=== PATIENT | female | born 1985 | race Hispanic/Latino ===

== ENCOUNTER 2017-06-04 12:57 | Observation (INO) | payer MEDICAID ==
[2017-06-04] MEDS ORDERED: PHARMACY COMMUNICATION MISC SCH (13:15)
[2017-06-04 14:19] LABS: COLLECTION PERIOD,URINE 24 HR; TOTAL VOLUME 24HRS,URINE 1400 mL
[2017-06-04 14:20] LABS: TPROTEIN TIMED,URINE 16 mg/dL; TPROTEIN U,24HR CALC 224 mg/24HR (0-165)
[2017-06-04 14:23] LABS: CREATININE,SERUM FOR CRCL 0.4 mg/dL (0.6-1.3)
[2017-06-04] MEDS ORDERED: CELESTONE SOLUSPAN 6 MG/ML 5ML VIAL IM ONE (14:45)
== END 2017-06-04 15:11 | disposition home or self-care (01) ==
LOC: EDBD → LAB 12:57 → LDH 12:58
PROVIDERS: ADMIT Obstetrics & Gynecology; ATTEND Obstetrics & Gynecology
DX: I10 Essential (primary) hypertension (principal)
CPT/HCPCS: 82575; 84156; 96372; G0378 ×2; J0702 ×2

== ENCOUNTER 2017-06-24 10:00 | Inpatient (IN) | payer MEDICAID ==
[2017-06-24 11:43] LABS: HEMATOCRIT 34.7 % (36-48); MEAN CORPUSCULAR HEMOGLOBIN 27.1 pg (27.0-33.0); MEAN CORPUSCULAR HGB CONC 32.4 g/dL (32.0-36.0); MEAN CORPUSCULAR VOLUME 83.6 fL (79-99); PLATELET COUNT (AUTO) 308 K/uL (130-400); RED BLOOD CELL COUNT(AUTO) 4.15 MIL/uL (4.00-5.50); RED CELL DISTRIBUTION WIDTH 17.3 % (11.0-15.5); WHITE BLOOD COUNT (AUTO) 7.8 K/uL (4.8-10.8)
[2017-06-25] MEDS ORDERED: CALDOLOR 800MG+NS 250ML 250 ML IV PRN (05:45)
[2017-06-25] MEDS ORDERED: CEFAZOLIN SODIUM 1 GM VIAL IVP PRN (05:45)
[2017-06-25] MEDS ORDERED: LACTATED RINGERS 1000ML 1,000 ML IV SCH (05:45)
[2017-06-25] MEDS ORDERED: DURAMORPH PF1 MG/ML 10ML AMP IV ONE (07:12)
[2017-06-25] MEDS ORDERED: OXYTOCIN 10 UNIT/1ML 10ML VIAL ONE (07:21)
[2017-06-25] MEDS ORDERED: EPHEDRINE-NS PF 50MG/5ML SYRINGE IV ONE (07:22)
[2017-06-25 07:30] LABS: HEPATITIS Bs ANTIGEN SCREEN P Negative (Negative)
[2017-06-25] MEDS ORDERED: OXYTOCIN-LR 20 UNITS/1000 ML 1,000 ML IV PRN (08:06)
[2017-06-25] MEDS ORDERED: ACETAMINOPHEN-CODEINE 300/30MG TAB PO PRN (08:15)
[2017-06-25] MEDS ORDERED: DEXTROSE 5 %-0.45 % NACL 1,000 ML IV PRN (08:15)
[2017-06-25] MEDS ORDERED: SODIUM CHLORIDE 0.9% 10 ML VIAL IVP PRN (08:15)
[2017-06-25] MEDS: IBUPROFEN 800 MG TAB PO SCH ×2 (08:15→16:15)
[2017-06-25] MEDS ORDERED: PROMETHAZINE HCL 25 MG/ML 1ML AMPULE IM PRN ×2 (08:15→09:15)
[2017-06-25] MEDS ORDERED: LANOLIN 30GM OINTMENT TP PRN (08:15)
[2017-06-25] MEDS ORDERED: MEPERIDINE-PF 75 MG/ML SYG IM PRN (08:15)
[2017-06-25] MEDS ORDERED: DIPHENHYDRAMINE HCL 25 MG CAPSULE PO PRN (08:15)
[2017-06-25] MEDS ORDERED: ACETAMINOPHEN EXTRA STRENGTH 500 MG TABLET PO PRN (08:15)
[2017-06-25] MEDS ORDERED: BISACODYL 10 MG SUPP.RECT RC PRN (08:15)
[2017-06-25] MEDS: DOCUSATE SODIUM 100 MG CAP PO SCH ×2 (09:00→21:39)
[2017-06-25] MEDS: LIDOCAINE 5% TOPICAL PATCH TP SCH (09:00)
[2017-06-25] MEDS ORDERED: DiphenhydrAMINE HCL 50 MG/ML VIAL IVP PRN (09:15)
[2017-06-25] MEDS ORDERED: NALOXONE HCL 0.4 MG/1 ML ML IVP PRN (09:15)
[2017-06-25] MEDS ORDERED: METOCLOPRAMIDE 10 MG/2 ML VIAL IVP PRN (09:15)
[2017-06-25] MEDS ORDERED: ONDANSETRON HCL 4 MG/2 ML 8 MG in SODIUM CHLORIDE 0.9% 50 ML IVP NR (09:15)
[2017-06-25] MEDS ORDERED: MORPHINE SULFATE 2 MG/ML 1ML SYG IVP PRN (09:15)
[2017-06-25] MEDS ORDERED: ONDANSETRON HCL 4 MG/2 ML VIAL IVP PRN ×2 (09:15)
[2017-06-25] MEDS ORDERED: EPHEDRINE SULFATE 50 MG/ML AMPULE IVP PRN (09:15)
[2017-06-25] MEDS ORDERED: HYDROCODONE/ACETAMINOPHEN 5/325 MG TAB PO PRN (09:15)
[2017-06-25] MEDS: LABETALOL HCL 100 MG TABLET PO SCH ×2 (09:25→21:39)
[2017-06-25] MEDS: HYDROCODONE/ACETAMINOPHEN 5/325 MG TAB PO PRN ×2 (09:43→21:45)
[2017-06-25 10:15] VITALS: BP 165/106
[2017-06-25] MEDS ORDERED: LABE100T PO (10:30)
[2017-06-25] MEDS ORDERED: PREN-154 PO (10:30)
[2017-06-25 12:49] VITALS: BP 140/86
[2017-06-25] MEDS: CALDOLOR 800MG+NS 250ML 250 ML IV SCH (16:09)
[2017-06-25 16:29] VITALS: BP 138/86
[2017-06-25 19:25] VITALS: BP 130/77
[2017-06-25] MEDS: SIMETHICONE 80 MG TAB.CHEW PO PRN (21:38)
[2017-06-25 22:58] VITALS: BP 119/77
[2017-06-26] MEDS: IBUPROFEN 800 MG TAB PO SCH ×3 (00:15→16:41)
[2017-06-26] MEDS: CALDOLOR 800MG+NS 250ML 250 ML IV SCH (00:45)
[2017-06-26 03:37] VITALS: BP 108/65
[2017-06-26 06:52] LABS: HEMATOCRIT 29.5 % (36-48); MEAN CORPUSCULAR HEMOGLOBIN 28.2 pg (27.0-33.0); MEAN CORPUSCULAR HGB CONC 33.5 g/dL (32.0-36.0); MEAN CORPUSCULAR VOLUME 84.1 fL (79-99); PLATELET COUNT (AUTO) 268 K/uL (130-400); RED BLOOD CELL COUNT(AUTO) 3.51 MIL/uL (4.00-5.50); RED CELL DISTRIBUTION WIDTH 16.9 % (11.0-15.5); WHITE BLOOD COUNT (AUTO) 7.9 K/uL (4.8-10.8)
[2017-06-26 07:27] VITALS: BP 129/76
[2017-06-26] MEDS: DOCUSATE SODIUM 100 MG CAP PO SCH ×2 (08:52→21:17)
[2017-06-26] MEDS: SIMETHICONE 80 MG TAB.CHEW PO PRN ×3 (08:53→21:17)
[2017-06-26] MEDS: LABETALOL HCL 100 MG TABLET PO SCH ×2 (08:53→21:17)
[2017-06-26] MEDS: DIPH,PERTUSS(ACELL),TET VAC/PF 0.5 ML VIAL IM SCH (08:56)
[2017-06-26 11:12] VITALS: BP 133/92
[2017-06-26] MEDS: LIDOCAINE 5% TOPICAL PATCH TP SCH (13:20)
[2017-06-26] MEDS: HYDROCODONE/ACETAMINOPHEN 5/325 MG TAB PO PRN (13:28)
[2017-06-26 16:46] VITALS: BP 140/82
[2017-06-26 19:27] VITALS: BP 133/76
[2017-06-26 23:15] VITALS: BP 135/86
[2017-06-27] MEDS: IBUPROFEN 800 MG TAB PO SCH ×3 (00:32→14:44)
[2017-06-27 03:33] VITALS: BP 138/84
[2017-06-27 07:25] VITALS: BP 151/91
[2017-06-27] MEDS: SIMETHICONE 80 MG TAB.CHEW PO PRN ×2 (08:02→14:44)
[2017-06-27] MEDS: LABETALOL HCL 100 MG TABLET PO SCH (08:02)
[2017-06-27] MEDS: DOCUSATE SODIUM 100 MG CAP PO SCH (08:02)
[2017-06-27] MEDS: LIDOCAINE 5% TOPICAL PATCH TP SCH (08:04)
[2017-06-27] MEDS: DIPH,PERTUSS(ACELL),TET VAC/PF 0.5 ML VIAL IM SCH (08:15)
[2017-06-27 11:26] VITALS: BP 137/90
[2017-06-27] MEDS ORDERED: DOCU-116 PO (14:19)
[2017-06-27] MEDS ORDERED: MO8B PO (14:20)
[2017-06-27] MEDS ORDERED: ACET1TAB12 PO (14:21)
[2017-06-27 15:53] VITALS: BP 140/92
== END 2017-06-27 16:00 | disposition home or self-care (01) | DRG 540 ==
LOC: EDBD 10:00 → EDSTATUS 10:00 → LDH 06-25 05:35 → EDBD 06-25 10:00 → WSH 06-25 10:15
PROVIDERS: ADMIT Obstetrics & Gynecology; ATTEND Obstetrics & Gynecology
PROC: 3E0234Z Introduction of Serum, Toxoid and Vaccine into Muscle, Percutaneous Approach (ICD-10-PCS; 2017-06-25)
PROC: 10D00Z1 Extraction of Products of Conception, Low, Open Approach (ICD-10-PCS; principal; 2017-06-25 07:30)
DX: O30.043 Twin pregnancy, dichorionic/diamniotic, third trimester (principal); Z37.2 Twins, both liveborn; O16.4 Unspecified maternal hypertension, complicating childbirth; O99.214 Obesity complicating childbirth; E66.9 Obesity, unspecified; O34.13 Maternal care for benign tumor of corpus uteri, third trimester; D25.2 Subserosal leiomyoma of uterus; O32.1XX1 Maternal care for breech presentation, fetus 1; Z3A.36 36 weeks gestation of pregnancy; Z23 Encounter for immunization
CPT/HCPCS: 36415; 59510; 85027; 86592; 86850; 86900; 86901; 87340; 88305; 90715; A4344; A4606; J0690; J1200; J1741; J2274; J2405; J2590; J3490; J7120